=== PATIENT | female | born 1970 | race Caucasian/White ===

== ENCOUNTER 2016-09-09 06:44 | Emergency (ER) | payer OTHER ==
--- NOTE | 2016-09-09 08:54 | DIAGNOSTIC IMAGING REPORT ---
PROCEDURE: CT ABDOMEN/PELVIS W/O CONTRAST INDICATION: Left flank pain, initial encounter TECHNIQUE: Noncontrast axial images were obtained of the entire abdomen and pelvis with sagittal and coronal reformations. COMPARISON: None. FINDINGS: ABDOMEN: Punctate nonobstructing calculus in each kidney. Normal ureters. No hydronephrosis. Right middle lobe scarring. Heart size is normal. Liver, gallbladder, pancreas, spleen, adrenal glands and the aorta are normal. Stool throughout the large bowel. PELVIS: Normal appendix. Normal bladder. No pelvic mass, free fluid or inflammatory changes. Mild degenerative changes of the spine. IMPRESSION: 1. Nonobstructing bilateral renal calculi 2. Obstipation 3. Results discussed with Dr. Gonzalez All CT scans at this facility use dose modulation, iterative reconstruction, and/or weight-based dosing when appropriate to reduce radiation dose to as low as reasonably achievable.
--- NOTE | 2016-09-09 09:40 | ED ORDER SUMMARY ---
..... Patient: FRANCESCO WRIGHT OrderSheet [facility] VisitID: [id number] [place] [address] 46y, F Registration Date/Time: 09/09/2016 ORDER SHEET Weight: 53.0 kg (stated) Allergies: Sulfa Antibiotics GENERAL ORDERS: CBC w Diff Urgent (06:59 09/09/2016 Tyron JOHNSON) (Ack 7:01 CHagerty ER Student) (7:48 LWhalen R.N.) CMP Urgent (06:59 09/09/2016 Tyron JOHNSON) (Ack 7:01 CHagerty ER Student) (7:48 LWhalen R.N.) UA-Culture if indicated Urgent (06:59 09/09/2016 Tyron JOHNSON) (Ack 7:01 CHagerty ER Student) (7:48 LWhalen R.N.) Amylase Urgent (06:59 09/09/2016 Tyron JOHNSON) (Ack 7:01 CHagerty ER Student) (7:48 LWhalen R.N.) Lipase Urgent (06:59 09/09/2016 Tyron JOHNSON) (Ack 7:01 CHagerty ER Student) (7:48 LWhalen R.N.) Urine Urgent (06:59 09/09/2016 Tyron JOHNSON) (Ack 7:01 CHagerty ER Student) (7:48 LWhalen R.N.) CT Abd/Pel wo Cont Urgent (07:56 09/09/2016 Tyron JOHNSON) (Ack 8:04 LNations ER Tech1) (9:53 Prakash R.N.) MEDICATION ORDERS: IV FLUIDS: IV NS : initial bolus 1000 mL (1000 mL/hr), then 200 mL/hr for 4h (NOW); Urgent (06:58 09/09/2016 Tyron JOHNSON) (7:48 LWhalen R.N.) Toradol IV 30 mg (NOW) (07:59 09/09/2016 Tyron JOHNSON) (8:11 LWhalen R.N.) ORDER SHEET NOTES: [Electronically signed by Marquise Parr R.N. (10:22 09/09/2016)] [Electronically signed by Robert Gonzalez MD (14:02 09/13/2016)] [Electronically locked/signed by Marquise Parr R.N. (10:22 09/09/2016)]
--- NOTE | 2016-09-09 09:40 | ED CLINICAL REPORT ---
Clinical Report - Physicians/Mid Levels [facility] [address] [place] [address] 09/09/2016 6:47 Patient: FRANCESCO WRIGHT Time Seen: 06:59. Arrived- By private vehicle. Historian- patient. HISTORY OF PRESENT ILLNESS Chief Complaint: LEFT FLANK PAIN. This started today at about 3 AM and still present. It was abrupt in onset and has been constant. The symptoms are described as severe. The patient has had severe left-sided flank pain. She has had irregular periods. No pain with urination, urinary frequency, urgency of urination or hematuria. Last normal menstrual period was 2 weeks ago. REVIEW OF SYSTEMS The patient has had chills. No fever, sweats, calf pain, chest pain or cough. No difficulty breathing, pedal edema, palpitations, black stools or bloody stools. No constipation, diarrhea, nausea or vomiting. All systems otherwise negative, except as recorded above. PAST HISTORY ( PCP - [facility]). Problems: Split uterus. Nephrolithiasis. Additional Surgeries: Ear. Medications: Black Cohosh Oral, at bedtime. Muscle Relaxant, at bedtime, for TMJ. Allergies: Sulfa Antibiotics. SOCIAL HISTORY Current every day heavy tobacco smoker (cigarette)- less than 1 pack per day. History of occasional drug use: marijuana. No alcohol use. FAMILY HISTORY Cancer in grandparent; seizure disorder in first-degree relative (mother). ADDITIONAL NOTES The nursing notes have been reviewed. PHYSICAL EXAM Vital Signs: 09/09/2016 06:50 BP: 153/90. HR: 77. RR: 16. O2 saturation: 100%. Temp: 98.4 F. Webster-Nickerson pain scale: 6/10. Have been reviewed. Appearance: Alert. ENT: Pharynx normal. Neck: Neck supple. CVS: Heart sounds normal. Respiratory: No respiratory distress. Breath sounds normal. Abdomen: Soft and nontender. Bowel sounds normal. No organomegaly. No mass. Back: Normal external inspection. No CVA tenderness. Skin: Skin warm and dry. Normal skin color. Normal skin turgor. Extremities: Extremities nontender. No lower extremity edema. LABS, X-RAYS, AND EKG Abdominal CT: IMPRESSION: 1. Nonobstructing bilateral renal calculi 2. Obstipation. The study was interpreted by the radiologist and contemporaneously by me. Laboratory Tests: UA-Culture if indicated: (GLADIS: 09/09/2016 07:03) ( [facility] 09/09/2016 07:51) Final results Test Result Flag Units (Reference) URINE COLOR YELLOW URINE APPEARANCE CLEAR URINE GLUCOSE NEGATIVE (NEGATIVE) URINE BILIRUBIN NEGATIVE (NEGATIVE) URINE KETONE TRACE (NEGATIVE) URINE SPECIFIC GRAVITY 1.020 (1.010-1.030) URINE PH 6.0 (5.0-8.0) URINE PROTEIN NEGATIVE (NEGATIVE) URINE UROBILINOGEN 0.2 EU/dL (0.2-1.0) URINE NITRITE NEGATIVE (NEGATIVE) URINE BLOOD 2+ (NEGATIVE) URINE LEUK ESTERASE NEGATIVE (NEGATIVE) URINE RBC 5-10 rbc/hpf (0-1) URINE WBC 3-5 wbc/hpf (0-1) URINE EPITHELIAL CELLS 3-5 EPI/hpf (0-5) URINE BACTERIA FEW (1+) (NONE SEEN) URINE COMMENT CULT NOT INDICATED URINE CULTURES ARE SET-UP BASED ON THE FOLLOWING CRITERIA:POSITIVE NITRITEPOSITIVE LEUKOCYTE ESTERASEGREATER THAN 10 WHITE BLOOD CELLSMODERATE (2+) OR GREATER BACTERIA Urine: (GLADIS: 09/09/2016 07:03) ( [facility] [place] 09/09/2016 07:31) Final results Test Result Flag Units (Reference) URINE NEGATIVE CBC w Diff: (GLADIS: 09/09/2016 07:05) ( [facility] [place] 09/09/2016 07:41) Final results Test Result Flag Units (Reference) WHITE BLOOD COUNT 13.7 H K/uL (4.5-11.5) RED BLOOD COUNT 4.53 M/uL (4.00-5.20) HEMOGLOBIN 14.0 gm/dL (12.0-16.0) HEMATOCRIT 43.3 % (36.0-46.0) MEAN CELL VOLUME 96 fL (80-100) MEAN CORPUSCULAR HGB 31 pg (26-34) MEAN CORPUSCULAR HGB CONC 32 g/dL (31-37) RED CELL DISTRIBUTION WIDTH 14.3 % (11.6-14.8) PLATELET COUNT 275 K/uL (150-400) NEUTROPHIL % 81.1 H % (50-75) LYMPH % 12.9 L % (25-40) MONO % 3.4 % (3-14) EOSINOPHIL % 2.3 % (0-4) BASOPHIL % 0.3 % (0-2) CMP: (GLADIS: 09/09/2016 07:05) ( MsgRcvd 09/09/2016 07:44) Final results Test Result Flag Units (Reference) GLUCOSE 92 mg/dL (70-110) BUN 10 mg/dL (7-18) CREATININE 0.6 mg/dL (0.6-1.3) Estimated GFR >60 mL/min Estimated GFR- >60 mL/min Note: Persistent reduction over 3 months in eGFR<60 mL/min/1.73 m2 defines CKD. Patients with eGFR values>=60 mL/min/1.73 m2 may also have CKD if evidence ofpersistent proteinuria. Additional information may be foundat www.kidney.org. SODIUM 142 mmol/L (136-145) POTASSIUM 3.7 mmol/L (3.5-5.1) CHLORIDE 106 mmol/L (98-107) CARBON DIOXIDE 28 mmol/L (21-32) CALCIUM 8.7 mg/dL (8.5-10.1) TOTAL PROTEIN 7.6 g/dL (6.4-8.2) ALBUMIN 3.6 g/dL (3.3-5.0) BILIRUBIN, TOTAL 0.5 mg/dL (0.0-1.0) ALKALINE PHOSPHATASE 82 U/L (46-116) AST (SGOT) 13 L U/L (15-37) ALT (SGPT) 18 U/L (12-78) LIPASE 116 U/L (73-393) AMYLASE 47 U/L (25-115) . PROGRESS AND PROCEDURES Patient/family counseled. CLINICAL IMPRESSION Constipation Microscopic hematuria Acute urinary tract infection with cystitis. Possible left renal colic with urinary tract infection and hematuria. INSTRUCTIONS No driving or operating machinery while taking medication. Drink plenty of fluids. Warnings: Further evaluation is necessary. GENERAL WARNINGS: Return or contact your physician immediately if your condition worsens or changes unexpectedly, if not improving as expected, or if other problems arise. Prescription Medications: Hydrocodone/APAP 5mg/325mg: take 1 to 2 orally every 6 hours as needed for pain. Dispense fifteen (15). No refills. Toradol 10 mg tablets: Take 1 tablet orally every 6 hours as needed. Dispense fifteen (15). No refills. Substitution is permissible. Zofran 4 mg: Take 1 orally every six hours as needed for nausea/vomiting. Dispense ten (10). No refills. Substitution is permissible. Macrobid 100 mg: Take 1 capsule orally every 12 hours for 7 days. No refills. Substitution is permissible. OTC Medications: Colace capsules (available over the counter): take according to label instructions. Follow-up: Follow up with your doctor tomorrow. Call for an appointment. Follow up with a urologist- as recommended by your primary care physician. Understanding of the discharge instructions verbalized by patient. (Electronically signed by Robert Gonzalez MD 09/13/2016 14:02)
--- NOTE | 2016-09-09 09:40 | ED NURSING NOTES ---
Clinical Report - Nurses [facility] [address] [place] [address] 09/09/2016 6:47 Patient: FRANCESCO WRIGHT TRIAGE Triage time 06:50. Acuity: LEVEL 3. Chief Complaint: (left side pain). Alert. --07:00 Yeni Dominguez R.N. 06:50 09/09/16. BP: 153/90. HR: 77. RR: 16. O2 saturation: 100%. Temp: 98.4 F (oral). Webster-Nickerson pain scale: 01/23. --07:00 Yeni Dominguez R.N. Weight: 53 kg stated. Height/Length: 64 inches Per Patient. BMI: 20.1. --06:59 Yeni Dominguez R.N. Medications Muscle Relaxant, at bedtime, for TMJ. --06:54 Yeni Dominguez R.N. Black Cohosh Oral, at bedtime. --06:54 Yeni Dominguez R.N. Allergies Sulfa Antibiotics. --06:55 Yeni Dominguez R.N. History Arrived by private vehicle. Historian: patient. Accompanied by family. Primary physician ([facility]). This started today. This is a new problem and onset was abrupt. (at about 0300). 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 PAST MEDICAL HX: Immunizations: up-to-date. Last normal menstrual period was 2 weeks ago. Sexual partner has had a vasectomy. SOCIAL HX: Heavy tobacco smoker (cigarette)- 1 pack per day. History of occasional drug use: marijuana. No alcohol use. NUTRITIONAL RISK ASSESSMENT: The nutritional risk assessment revealed no deficiencies. FUNCTIONAL ASSESSMENT: Functional assessment: no impairments noted. --07:00 Yeni Dmoinguez R.N. PROBLEMS: Split uterus. Nephrolithiasis. --06:56 Yeni Dominguez R.N. ADDITIONAL SURGERIES: Ear. --06:56 Yeni Dominguez R.N. Interventions ID band on patient. To treatment room. --07:00 Yeni Dominguez R.N. PHYSICAL ASSESSMENT Ambulatory to room. Patient gowned. GENERAL / NEURO / PSYCH: Alert. Oriented X 4. Appears in pain. HEENT: Mucous membranes are pink. RESPIRATORY: Respirations not labored. CVS: Capillary refill less than 2 seconds. SKIN: Skin is warm and dry. --07:00 Yeni Dominguez R.N. NURSING PROGRESS NOTES Head of bed elevated. Two patient identifiers checked. Call light placed in reach. Side rails up x 1. Bed placed in lowest position. Brakes of bed on. --07:00 Yeni Dominguez R.N. Patient ready for evaluation- chart flagged. --07:00 Yeni Dominguez R.N. Patient ID band checked for patient name and birthdate: patient confirmed. Instructions provided to collect clean catch urine and patient verbalized understanding. Clean catch urine collected with return of yellow-colored clear urine; sample sent to lab. Specimen labeled in the presence of the patient. --07:00 Yeni Dominguez R.N. 07:00 09/09/2016 Site #1 started via IV in the left antecubital space with an 20g angiocath, with aseptic technique and good blood return; one attempt. Blood drawn: rainbow set. Labeled in the presence of the patient and sent to the lab. Saline lock flushed with 10 mL saline. --07:03 Yeni Dominguez R.N. IV started by VANITA Koenig. --07:03 Yeni Dominguez R.N. 07:48 09/09/2016 Started bag #1 1000 mL IV Fluids IV NS (Saline); at 1000 mL/hr over 1 hour(s) via site #1 via IV pump. Allergies verified and confirmed 5 rights. IV patency established. IV site checked: no pain, redness, or swelling. IV flushed thoroughly pre- and post-medication administration. --07:48 Jose M Araujo R.N. 07:48 09/09/16. BP: 120/83. HR: 67. RR: 18. O2 saturation: 96%. Temp: 98.2 F. Pain level now 7/10. --07:48 Jose M Araujo R.N. 08:11 09/09/2016 Toradol IVP 30 mg given over 2 minute(s) via site #1. Allergies verified and confirmed 5 rights. IV patency established. IV site checked: no pain, redness, or swelling. IV flushed thoroughly pre- and post-medication administration. IVP given by RN. --08:11 Jose M Araujo R.N. 09:55 09/09/2016 IV Fluids IV NS Discontinued: bag #1 infused upon discharge. Total amount infused: 1 Liter mL. IV patency established. IV site checked: no pain, redness, or swelling. IV flushed thoroughly. --10:20 Marquise Parr R.N. 10:00 09/09/2016 Site #1 removed upon discharge. Catheter intact. --10:20 Marquise Parr R.N. DISPOSITION / DISCHARGE 10:02 09/09/16. Condition at departure: improved. The goals identified in the patient's plan of care were met. No learning barriers present. Discharge instructions provided and reviewed with the patient. Reviewed warnings. Reviewed medication(s). Treatments reviewed. Patient verbalized understanding. Written instructions provided in [place]. The patient was discharged by the physician. She was discharged home and accompanied by family. She left the Emergency Department ambulatory and via private vehicle. Family member driving. FALL RISK ASSESSMENT: Fall risk assessment completed. No fall risk identified. --10:02 Marquise Parr R.N. 10:00 09/09/16. BP: 126/82. HR: 80. RR: 12. O2 saturation: 100% on room air. Temp: 98.2 F (oral). --10:02 Marquise Parr R.N. 10:02 09/09/16. Departure time: 10:02. --10:02 Marquise Parr R.N. Locked/Released at 09/09/2016 10:23 by Marquise Parr R.N.
--- NOTE | 2016-09-09 09:40 | ED NURSING NOTES ---
Clinical Report - Nurses [facility] [address] [place] [address] 09/09/2016 6:47 Patient: FRANCESCO WRIGHT TRIAGE Triage time 06:50. Acuity: LEVEL 3. Chief Complaint: (left side pain). Alert. --07:00 Yeni Dominguez R.N. 06:50 09/09/16. BP: 153/90. HR: 77. RR: 16. O2 saturation: 100%. Temp: 98.4 F (oral). Webster-Nickerson pain scale: 01/23. --07:00 Yeni Dominguez R.N. Weight: 53 kg stated. Height/Length: 64 inches Per Patient. BMI: 20.1. --06:59 Yeni Dominguez R.N. Medications Muscle Relaxant, at bedtime, for TMJ. --06:54 Yeni Dominguez R.N. Black Cohosh Oral, at bedtime. --06:54 Yeni Dominguez R.N. Allergies Sulfa Antibiotics. --06:55 Yeni Dominguez R.N. History Arrived by private vehicle. Historian: patient. Accompanied by family. Primary physician ([facility]). This started today. This is a new problem and onset was abrupt. (at about 0300). 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 PAST MEDICAL HX: Immunizations: up-to-date. Last normal menstrual period was 2 weeks ago. Sexual partner has had a vasectomy. SOCIAL HX: Heavy tobacco smoker (cigarette)- 1 pack per day. History of occasional drug use: marijuana. No alcohol use. NUTRITIONAL RISK ASSESSMENT: The nutritional risk assessment revealed no deficiencies. FUNCTIONAL ASSESSMENT: Functional assessment: no impairments noted. --07:00 Yeni Dominguez R.N. PROBLEMS: Split uterus. Nephrolithiasis. --06:56 Yeni Dominguez R.N. ADDITIONAL SURGERIES: Ear. --06:56 Yeni Dominguez R.N. Interventions ID band on patient. To treatment room. --07:00 Yeni Dominguez R.N. PHYSICAL ASSESSMENT Ambulatory to room. Patient gowned. GENERAL / NEURO / PSYCH: Alert. Oriented X 4. Appears in pain. HEENT: Mucous membranes are pink. RESPIRATORY: Respirations not labored. CVS: Capillary refill less than 2 seconds. SKIN: Skin is warm and dry. --07:00 Yeni Dominguez R.N. NURSING PROGRESS NOTES Head of bed elevated. Two patient identifiers checked. Call light placed in reach. Side rails up x 1. Bed placed in lowest position. Brakes of bed on. --07:00 Yeni Dominguez R.N. Patient ready for evaluation- chart flagged. --07:00 Yeni Dominguez R.N. Patient ID band checked for patient name and birthdate: patient confirmed. Instructions provided to collect clean catch urine and patient verbalized understanding. Clean catch urine collected with return of yellow-colored clear urine; sample sent to lab. Specimen labeled in the presence of the patient. --07:00 Yeni Dominguez R.N. 07:00 09/09/2016 Site #1 started via IV in the left antecubital space with an 20g angiocath, with aseptic technique and good blood return; one attempt. Blood drawn: rainbow set. Labeled in the presence of the patient and sent to the lab. Saline lock flushed with 10 mL saline. --07:03 Yeni Dominguez R.N. IV started by VANITA Koenig. --07:03 Yeni Dominguez R.N. 07:48 09/09/2016 Started bag #1 1000 mL IV Fluids IV NS (Saline); at 1000 mL/hr over 1 hour(s) via site #1 via IV pump. Allergies verified and confirmed 5 rights. IV patency established. IV site checked: no pain, redness, or swelling. IV flushed thoroughly pre- and post-medication administration. --07:48 Jose M Araujo R.N. 07:48 09/09/16. BP: 120/83. HR: 67. RR: 18. O2 saturation: 96%. Temp: 98.2 F. Pain level now 7/10. --07:48 Jose M Araujo R.N. 08:11 09/09/2016 Toradol IVP 30 mg given over 2 minute(s) via site #1. Allergies verified and confirmed 5 rights. IV patency established. IV site checked: no pain, redness, or swelling. IV flushed thoroughly pre- and post-medication administration. IVP given by RN. --08:11 Jose M Araujo R.N. 09:55 09/09/2016 IV Fluids IV NS Discontinued: bag #1 infused upon discharge. Total amount infused: 1 Liter mL. IV patency established. IV site checked: no pain, redness, or swelling. IV flushed thoroughly. --10:20 Marquise Parr R.N. 10:00 09/09/2016 Site #1 removed upon discharge. Catheter intact. --10:20 Marquise Parr R.N. DISPOSITION / DISCHARGE 10:02 09/09/16. Condition at departure: improved. The goals identified in the patient's plan of care were met. No learning barriers present. Discharge instructions provided and reviewed with the patient. Reviewed warnings. Reviewed medication(s). Treatments reviewed. Patient verbalized understanding. Written instructions provided in [place]. The patient was discharged by the physician. She was discharged home and accompanied by family. She left the Emergency Department ambulatory and via private vehicle. Family member driving. FALL RISK ASSESSMENT: Fall risk assessment completed. No fall risk identified. --10:02 Marquise Parr R.N. 10:00 09/09/16. BP: 126/82. HR: 80. RR: 12. O2 saturation: 100% on room air. Temp: 98.2 F (oral). --10:02 Marquise Parr R.N. 10:02 09/09/16. Departure time: 10:02. --10:02 Marquise Parr R.N. Locked/Released at 09/09/2016 10:23 by Marquise Parr R.N.
--- NOTE | 2016-09-09 09:40 | ED ORDER SUMMARY ---
..... Patient: FRANCESCO WRIGHT OrderSheet [facility] VisitID: [id number] [place] [address] 46y, F Registration Date/Time: 09/09/2016 ORDER SHEET Weight: 53.0 kg (stated) Allergies: Sulfa Antibiotics GENERAL ORDERS: CBC w Diff Urgent (06:59 09/09/2016 Tyron JOHNSON) (Ack 7:01 CHagerty ER Signal Person) (7:48 LWhalen R.N.) CMP Urgent (06:59 09/09/2016 Tyron JOHNSON) (Ack 7:01 CHagerty ER Signal Person) (7:48 LWhalen R.N.) UA-Culture if indicated Urgent (06:59 09/09/2016 Tyron JOHNSON) (Ack 7:01 CHagerty ER Signal Person) (7:48 LWhalen R.N.) Amylase Urgent (06:59 09/09/2016 Tyron JOHNSON) (Ack 7:01 CHagerty ER Signal Person) (7:48 LWhalen R.N.) Lipase Urgent (06:59 09/09/2016 Tyron JOHNSON) (Ack 7:01 CHagerty ER Signal Person) (7:48 LWhalen R.N.) Urine Urgent (06:59 09/09/2016 Tyron JOHNSON) (Ack 7:01 CHagerty ER Signal Person) (7:48 LWhalen R.N.) CT Abd/Pel wo Cont Urgent (07:56 09/09/2016 Tyron JOHNSON) (Ack 8:04 LNations ER Tech1) (9:53 Prakash R.N.) MEDICATION ORDERS: IV FLUIDS: IV NS : initial bolus 1000 mL (1000 mL/hr), then 200 mL/hr for 4h (NOW); Urgent (06:58 09/09/2016 Tyron JOHNSON) (7:48 LWhalen R.N.) Toradol IV 30 mg (NOW) (07:59 09/09/2016 Tyron JOHNSON) (8:11 LWhalen R.N.) ORDER SHEET NOTES: [Electronically signed by Marquise Parr R.N. (10:22 09/09/2016)] [Electronically signed by Robert Gonzalez MD (14:02 09/13/2016)] [Electronically locked/signed by Marquise Parr R.N. (10:22 09/09/2016)]
--- NOTE | 2016-09-13 14:02 | ED MED RECONCILIATION SUMMARY ---
Patient: FRANCESCO WRIGHT Medication Reconciliation Report [facility] VisitID: [id number] [place] [place] [address] 46y, F Registration Date/Time: 09/09/2016 Weight: 53.0 kg Height/Length: 64 in. BMI: 20.1 ALLERGIES: Sulfa Antibiotics The patient's Home Medications are listed below: THE FOLLOWING MEDICATIONS NEED TO BE RECONCILED: Black Cohosh Oral, at bedtime Muscle Relaxant, at bedtime, for TMJ The source(s) of the original Home Medication information: Not obtained. The following Medications were given to the patient in the Emergency Department: IV NS IV Fluids bolus 0, then 1000 mL/hr, administered: 09/09/2016 7:48:00 AM Toradol [IVP] IVP 30 mg, administered: 09/09/2016 8:11:00 AM The following Medications were prescribed to the patient: Colace capsules (available over the counter): take according to label instructions. -- Robert Gonzalez MD Hydrocodone/APAP 5mg/325mg: take 1 to 2 orally every 6 hours as needed for pain. Dispense fifteen (15). No refills. -- Robert Gonzalez MD Toradol 10 mg tablets: Take 1 tablet orally every 6 hours as needed. Dispense fifteen (15). No refills. Substitution is permissible. -- Robert Gonzalez MD Zofran 4 mg: Take 1 orally every six hours as needed for nausea/vomiting. Dispense ten (10). No refills. Substitution is permissible. -- Robert Gonzalez MD Macrobid 100 mg: Take 1 capsule orally every 12 hours for 7 days. No refills. Substitution is permissible. -- Robert Gonzalez MD
--- NOTE | 2016-09-13 14:02 | ED DISCHARGE INSTRUCTIONS ---
Patient: FRANCESCO WRIGHT General Instructions [facility] VisitID: [id number] [place] [address] 46y, F Registration Date/Time: 09/09/2016 Constipation Microscopic hematuria Acute urinary tract infection with cystitis. INSTRUCTIONS No driving or operating machinery while taking medication. Drink plenty of fluids. Warnings: Further evaluation is necessary. GENERAL WARNINGS: Return or contact your physician immediately if your condition worsens or changes unexpectedly, if not improving as expected, or if other problems arise. Prescription Medications: Hydrocodone/APAP 5mg/325mg: take 1 to 2 orally every 6 hours as needed for pain. Dispense fifteen (15). No refills. Toradol 10 mg tablets: Take 1 tablet orally every 6 hours as needed. Dispense fifteen (15). No refills. Substitution is permissible. Zofran 4 mg: Take 1 orally every six hours as needed for nausea/vomiting. Dispense ten (10). No refills. Substitution is permissible. Macrobid 100 mg: Take 1 capsule orally every 12 hours for 7 days. No refills. Substitution is permissible. OTC Medications: Colace capsules (available over the counter): take according to label instructions. Follow-up: Follow up with your doctor tomorrow. Call for an appointment. Follow up with a urologist- as recommended by your primary care physician. Understanding of the discharge instructions verbalized by patient. ADDITIONAL INFORMATION Constipation (Adult) Constipation is bowel movements that are less frequent than usual. Stools often become very hard and difficult to pass. This may lead to abdominal pain and bloating. It may also cause painful bowel movements. Constipation may be due to a diet thats low in fiber. Some medications, especially pain medications, can also cause it. Constipation may be treated with enemas, suppositories, laxatives or stool softeners. Your doctor will advise you which will work best for you. Follow the advice below to help avoid this problem in the future. Home Care Medication: Take any medicines as directed. Some laxatives are safe only for occasional use. Others can be taken on a regular basis. Talk to your doctor or pharmacist if you have questions. General Care: Prescription pain medications can cause constipation. If you are prescribed pain medications, ask the doctor whether you should also take a stool softener. A diet high in fiber with plenty of fluids helps to maintain regular, soft bowel movements. The following foods are good sources of dietary fiber: Cereals and breads: Whole grain cereal with bran, oatmeal, rolled oats, whole grain breads Fruits: All fruits (fresh and dried), raisins, prunes, apricots, berries, figs Vegetables: Any fresh vegetables, especially peas, broccoli, brussels sprouts, winter squash, green beans, cauliflower, hartley beans, carrots Other: Popcorn, brown rice Drink plenty of water when you increase the amount of fiber you eat. Follow Up with your doctor or return to this facility if symptoms do not improve in the next few days. You may require further tests or a referral to a specialist. Get Prompt Medical Attention if any of the following occur: Fever over 100.4F (38C) Failure to resume normal bowel movements Increasing abdominal or back pain Nausea or vomiting Abdominal swelling Blood in the stool Weakness, dizziness or fainting Unexpected vaginal bleeding Kidney Stone, Passed A kidney stone begins as tiny crystals that form inside the kidney where urine is made. Most kidney stones enlarge to about 1/8" to 1/4" in size before leaving the kidney and moving toward the bladder.While the stone remains in the kidney, it causes no symptoms. The sharp cramping pain and nausea/vomiting that you hadwas due to the stone moving through the ureter (the narrow tube joining the kidney to the bladder).Once the stone reaches your bladder, the pain stops. Home Care: Drink plenty of fluids. This increases urine flow and reduces the chance that a new stone will form. Healthy adults (no heart/liver/kidney disease) who have had a kidney stone should drink 2-3 quarts (8-12 eight-ounce glasses) of fluids per day. Most of this should be water. The goal is to produce 1.5 to 2 quarts of almost colorless urine per 24 hours. Unless another NSAID (non-steroidal anti-inflammatory drug) was prescribed, you may take ibuprofen (Motrin, Advil) or naproxen (Aleve) in addition to any narcotic pain medicine prescribed by your doctor for recurrent pain. [NOTE: If you have chronic liver or kidney disease or ever had a stomach ulcer or GI bleeding, talk with your doctor before using these medicines.] Collecting the stone: If you were given a strainer, urinate into a jar then pour the urine through the strainer and into the toilet. Continue this for 24-hours after your pain stops. Save any stone that you find in the strainer and bring it to your doctor for analysis. If you do not collect a stone, a 24 hour urine specimen can be obtained at a later time by your doctor, to determine the cause of your stone. Prevention: Each year, there is a 5-10% chance that a new stone will form (50% chance over the next 10 years).The risk is highest if you have a family history of kidney stones or have certain chronic illnesses such as diabetes.However, there are lifestyle and dietary changes that you can follow to reduce the risk of a recurrence. Most kidney stones are made of calcium. The following is advice for preventing a recurrence of calcium stones.If you dont know the type of stone you have, follow this advice, until the cause of your stone is determined. Things That Help: The most important thing you can do is to drink plenty of fluids each day, as described above (#1). Certain foods such as wheat, rice, rye, barley and beans contain phytate, a compound may lower the risk of recurrence of any type of stone. Increase the amounts of fruits and vegetables (especially those high in potassium). Things To Limit Or Avoid: Calcium supplements may increase your risk of calcium stones. If you are taking these, talk to your doctor about the risks and benefits of continuing this treatment.[Note: There is no need to limit the amount of calcium in the foods you eat (such as milk and dairy products)]. Limit salt intake to 2-3 grams (1 to 1.5 teaspoons) per day. Use limited amounts when cooking, and dont add salt at the table. Limit spinach, rhubarb, peanuts, cashews and almonds, grapefruit and grapefruit juice. Reducing the amount of animal meat in your diet may lower your risk. Women should avoid excess sugar (sucrose) and fructose (sweetener in many soft drinks) in their diet. If you take vitamin C as a supplement, do not take more than 1,000 mg per day. Follow Up with your doctor or as advised by our staff. Even if you don t collect the kidney stone, it is possible to analyze a 24 hour urine collection for the cause of this stone. Follow up with your doctor for this. [NOTE: If you had an x-ray or CT scan, it will be reviewed by a specialist. You will be notified of any new findings that may affect your care.] Get Prompt Medical Attention if any of the following occur: Severe pain that returns and not relieved by pain medicines Repeated vomiting or unable to keep down fluids Weakness, dizziness or fainting Fever of 100.4F (38C) or higher, or as directed by your healthcare provider Blood clotsin urine Unable to pass urine for 8 hours or increasing bladder pressure Blood In The Urine Blood in the urine ("hematuria") has many possible causes. If it occurs after an injury (such as a car accident or fall), it is most often a sign of bruising to the kidney or bladder. Common medical causes of blood in the urine include urinary tract infection, kidney stone, inflammation, tumors, or certain other diseases of the kidney or bladder. Menstruation can cause blood to appear in the urine sample, although it is not coming from the urinary tract. If only a trace amount of blood is present, it will show up on the urine test, even though the urine may be yellow and not pink or red. This may occur with any of the above conditions, as well as heavy exercise or high fever. In this case, your doctor may want to repeat the urine test on another day. This will show if the blood is still present. If so, then other tests can be done to find out the cause. Home Care: If your urine does not appear bloody (pink, brown or red) then you do not need to restrict your activity in any way. If you can see blood in your urine, rest and avoid heavy exertion until your next exam. Do not use aspirin or anti-inflammatory medicine like ibuprofen (Motrin, Advil) or naproxen (Naprosyn, Aleve). These thin the blood and may increase bleeding. Follow Up with your doctor or as advised by our staff. If you were injured and had blood in your urine, you should have a repeat urine test in 1-2 days. Contact your doctor or return to this facility for this test. [NOTE: A radiologist will review any X-rays that were taken. We will notify you of any new findings that may affect your care.] Get Prompt Medical Attention if any of the following occur: Bright red blood or blood clots in the urine (if a new symptom) Weakness, dizziness or fainting New groin, abdominal or back pain Fever of 100.4F (38C) or higher, or as directed by your healthcare provider Repeated vomiting Bleeding from nose, gums or easy bruising High Fiber Diet Fiber is present in all fruits, vegetables, cereals and grains. Fiber passes through the body undigested. A high fiber diet helps food move through the intestinal tract. The added bulk is helpful in preventing constipation. In people with diverticulosis it serves to clean out the pouches along the colon wall while preventing new ones from forming. A high fiber diet also reduces the risk of colon cancer, decreases blood cholesterol and prevents high blood sugar in people with diabetes. The foods listed below are high in fiber and should be included in your diet. If you are not used to high fiber foods, start with 1 or 2 foods from this list. Every 3-4 days add a new one to your diet until you are eating 4 high fiber foods per day. This should give you 20-35 Gm of fiber/day. It is also important to drink a lot of water when you are on this diet (6-8 glasses a day). Water causes the fiber to swell and increases the benefit. Foods High In Dietary Fiber: BREADS: Made with 100% whole wheat flour; tabitha, wheat or rye crackers; tortillas, bran muffins CEREALS: Whole grain cereal with bran (Chex, Raisin Bran, Edmondson Bran), oatmeal, rolled oats, granola, wheat flakes, brown rice NUTS: Any nuts FRUITS: All fresh fruits along with edible skins, (bananas, citrus fruit, mangoes, pears, prunes, raisins, apples, pineapple, apricot, melon, jams and marmalades), fruit juices (especially prune juice) VEGETABLES: All types, preferably raw or lightly cooked: especially, celery, eggplant, potatoes,spinach, broccoli, brussel sprouts, winter squash, carrots, cauliflower, soybeans, lentils, fresh and dried beans of all kinds OTHER: Popcorn, any spices Hydrocodone Bitartrate, Acetaminophen Oral tablet What is this medicine? ACETAMINOPHEN; HYDROCODONE (a set a GAEL bertha fen; jillian droe KOE done) is a pain reliever. It is used to treat mild to moderate pain. How should I use this medicine? Take this medicine by mouth. Swallow it with a full glass of water. Follow the directions on the prescription label. If the medicine upsets your stomach, take the medicine with food or milk. Do not take more than you are told to take. Talk to your ob gyn physician assistant regarding the use of this medicine in children. This medicine is not approved for use in children. What side effects may I notice from receiving this medicine? Side effects that you should report to your doctor or health clinical manager home care as soon as possible: allergic reactions like skin rash, itching or hives, swelling of the face, lips, or tongue breathing problems confusion feeling faint or lightheaded, falls stomach pain yellowing of the eyes or skin Side effects that usually do not require medical attention (report to your doctor or health clinical manager home care if they continue or are bothersome): nausea, vomiting stomach upset What may interact with this medicine? alcohol antihistamines isoniazid medicines for depression, anxiety, or psychotic disturbances medicines for sleep muscle relaxants naltrexone narcotic medicines (opiates) for pain phenobarbital ritonavir tramadol What if I miss a dose? If you miss a dose, take it as soon as you can. If it is almost time for your next dose, take only that dose. Do not take double or extra doses. Where should I keep my medicine? Keep out of the reach of children. This medicine can be abused. Keep your medicine in a safe place to protect it from theft. Do not share this medicine with anyone. Selling or giving away this medicine is dangerous and against the law. Store at room temperature between 15 and 30 degrees C (59 and 86 degrees F). Protect from light. Keep container tightly closed. Throw away any unused medicine after the expiration date. Discard unused medicine and used packaging carefully. Pets and children can be harmed if they find used or lost packages. What should I tell my health care provider before I take this medicine? They need to know if you have any of these conditions: brain tumor Crohn's disease, inflammatory bowel disease, or ulcerative colitis drink more than 3 alcohol-containing drinks per day drug abuse or addiction head injury heart or circulation problems kidney disease or problems going to the bathroom liver disease lung disease, asthma, or breathing problems an unusual or allergic reaction to acetaminophen, hydrocodone, other opioid analgesics, other medicines, foods, dyes, or preservatives or trying to get breast-feeding What should I watch for while using this medicine? Tell your doctor or health clinical manager home care if your pain does not go away, if it gets worse, or if you have new or a different type of pain. You may develop tolerance to the medicine. Tolerance means that you will need a higher dose of the medicine for pain relief. Tolerance is normal and is expected if you take the medicine for a long time. Do not suddenly stop taking your medicine because you may develop a severe reaction. Your body becomes used to the medicine. This does NOT mean you are addicted. Addiction is a behavior related to getting and using a drug for a non-medical reason. If you have pain, you have a medical reason to take pain medicine. Your doctor will tell you how much medicine to take. If your doctor wants you to stop the medicine, the dose will be slowly lowered over time to avoid any side effects. You may get drowsy or dizzy when you first start taking the medicine or change doses. Do not drive, use machinery, or do anything that may be dangerous until you know how the medicine affects you. Stand or sit up slowly. There are different types of narcotic medicines (opiates) for pain. If you take more than one type at the same time, you may have more side effects. Give your health care provider a list of all medicines you use. Your doctor will tell you how much medicine to take. Do not take more medicine than directed. Call emergency for help if you have problems breathing. The medicine will cause constipation. Try to have a bowel movement at least every 2 to 3 days. If you do not have a bowel movement for 3 days, call your doctor or health clinical manager home care. Too much acetaminophen can be very dangerous. Do not take Tylenol (acetaminophen) or medicines that contain acetaminophen with this medicine. Many non-prescription medicines contain acetaminophen. Always read the labels carefully. Ketorolac Tromethamine Oral tablet What is this medicine? KETOROLAC (bradley toe ROLE ak) is a non-steroidal anti-inflammatory drug (NSAID). It is used for a short while to treat moderate to severe pain, including pain after surgery. It should not be used for more than 5 days. How should I use this medicine? Take this medicine by mouth with a full glass of water. Follow the directions on the prescription label. Take your medicine at regular intervals. Do not take your medicine more often than directed. Do not take more than the recommended dose. A special MedGuide will be given to you by the pharmacist with each prescription and refill. Be sure to read this information carefully each time. Talk to your ob gyn physician assistant regarding the use of this medicine in children. While this drug may be prescribed for children as young as 16 years of age for selected conditions, precautions do apply. Patients over 65 years old may have a stronger reaction and need a smaller dose. What side effects may I notice from receiving this medicine? Side effects that you should report to your doctor or health clinical manager home care as soon as possible: allergic reactions like skin rash, itching or hives, swelling of the face, lips, or tongue black or tarry stools breathing problems changes in vision chest pain high blood pressure nausea or vomiting redness, blistering, peeling or loosening of the skin, including inside the mouth severe abdominal pain slurred speech or weakness on one side of the body unexplained weight gain or swelling unusual bleeding or bruising unusually weak or tired yellowing of eyes or skin Side effects that usually do not require medical attention (report to your doctor or health clinical manager home care if they continue or are bothersome): diarrhea dizziness headache heartburn What may interact with this medicine? Do not take this medicine with any of the following medications: aspirin and aspirin-like medicines cidofovir methotrexate NSAIDs, medicines for pain and inflammation, like ibuprofen or naproxen pemetrexed probenecid This medicine may also interact with the following medications: alcohol alendronate alprazolam carbamazepine cyclosporine diuretics flavocoxid fluoxetine ginkgo lithium medicines for high blood pressure like enalapril medicines that affect platelets like pentoxifylline medicines that treat or prevent blood clots like heparin, warfarin muscle relaxants phenytoin steroid medicines like prednisone or cortisone thiothixene What if I miss a dose? If you miss a dose, take it as soon as you can. If it is almost time for your next dose, take only that dose. Do not take double or extra doses. Where should I keep my medicine? Keep out of the reach of children. Store at room temperature between 20 and 25 degrees C (68 and 77 degrees F). Throw away any unused medicine after the expiration date. What should I tell my health care provider before I take this medicine? They need to know if you have any of these conditions: asthma bleeding problems like hemophilia cigarette smoker drink more than 3 alcohol containing drinks a day heart disease or circulation problems such as heart failure or leg edema (fluid retention) high blood pressure kidney disease liver disease stomach bleeding or ulcers an unusual or allergic reaction to ketorolac, aspirin, other NSAIDs, other medicines, foods, dyes, or preservatives or trying to get breast-feeding What should I watch for while using this medicine? Tell your doctor or health clinical manager home care if your pain does not get better. Talk to your doctor before taking another medicine for pain. Do not treat yourself. This medicine does not prevent heart attack or stroke. In fact, this medicine may increase the chance of a heart attack or stroke. The chance may increase with longer use of this medicine and in people who have heart disease. If you take aspirin to prevent heart attack or stroke, talk with your doctor or health clinical manager home care. Do not take medicines such as ibuprofen and naproxen with this medicine. Side effects such as stomach upset, nausea, or ulcers may be more likely to occur. Many medicines available without a prescription should not be taken with this medicine. This medicine can cause ulcers and bleeding in the stomach and intestines at any time during treatment. Do not smoke cigarettes or drink alcohol. These increase irritation to your stomach and can make it more susceptible to damage from this medicine. Ulcers and bleeding can happen without warning symptoms and can cause . You may get drowsy or dizzy. Do not drive, use machinery, or do anything that needs mental alertness until you know how this medicine affects you. Do not stand or sit up quickly, especially if you are an older patient. This reduces the risk of dizzy or fainting spells. This medicine can cause you to bleed more easily. Try to avoid damage to your teeth and gums when you brush or floss your teeth. Ondansetron Oral disintegrating tablet What is this medicine? ONDANSETRON (on NANCY se waqas) is used to treat nausea and vomiting caused by chemotherapy. It is also used to prevent or treat nausea and vomiting after surgery. How should I use this medicine? These tablets are made to dissolve in the mouth. Do not try to push the tablet through the foil backing. With dry hands, peel away the foil backing and gently remove the tablet. Place the tablet in the mouth and allow it to dissolve, then swallow. While you may take these tablets with water, it is not necessary to do so. Talk to your ob gyn physician assistant regarding the use of this medicine in children. Special care may be needed. What side effects may I notice from receiving this medicine? Side effects that you should report to your doctor or health clinical manager home care as soon as possible: allergic reactions like skin rash, itching or hives, swelling of the face, lips, or tongue breathing problems dizziness fast or irregular heartbeat feeling faint or lightheaded, falls fever and chills swelling of the hands and feet tightness in the chest Side effects that usually do not require medical attention (report to your doctor or health clinical manager home care if they continue or are bothersome): constipation or diarrhea headache What may interact with this medicine? Do not take this medicine with any of the following medications: -apomorphine -cisapride -dofetilide -dronedarone -pimozide -thioridazine -ziprasidone This medicine may also interact with the following medications: -carbamazepine -phenytoin -rifampicin -tramadol -other medicines that prolong the QT interval (cause an abnormal heart rhythm) What if I miss a dose? If you miss a dose, take it as soon as you can. If it is almost time for your next dose, take only that dose. Do not take double or extra doses. Where should I keep my medicine? Keep out of the reach of children. Store between 2 and 30 degrees C (36 and 86 degrees F). Throw away any unused medicine after the expiration date. What should I tell my health care provider before I take this medicine? They need to know if you have any of these conditions: heart disease history of irregular heartbeat liver disease low levels of magnesium or potassium in the blood an unusual or allergic reaction to ondansetron, granisetron, other medicines, foods, dyes, or preservatives or trying to get breast-feeding What should I watch for while using this medicine? Check with your doctor or health clinical manager home care as soon as you can if you have any sign of an allergic reaction. Nitrofurantoin, Nitrofurantoin, Macrocrystalline Oral capsule What is this medicine? NITROFURANTOIN (marisel whatley) is an antibiotic. It is used to treat urinary tract infections. How should I use this medicine? Take this medicine by mouth with a glass of water. Follow the directions on the prescription label. Take this medicine with food or milk. Take your doses at regular intervals. Do not take your medicine more often than directed. Do not stop taking except on your doctor's advice. Talk to your ob gyn physician assistant regarding the use of this medicine in children. While this drug may be prescribed for selected conditions, precautions do apply. What side effects may I notice from receiving this medicine? Side effects that you should report to your doctor or health clinical manager home care as soon as possible: allergic reactions like skin rash or hives, swelling of the face, lips, or tongue chest pain cough difficulty breathing dizziness, drowsiness fever or infection joint aches or pains pale or blue-tinted skin redness, blistering, peeling or loosening of the skin, including inside the mouth tingling, burning, pain, or numbness in hands or feet unusual bleeding or bruising unusually weak or tired yellowing of eyes or skin Side effects that usually do not require medical attention (report to your doctor or health clinical manager home care if they continue or are bothersome): dark urine diarrhea headache loss of appetite nausea or vomiting temporary hair loss What may interact with this medicine? antacids containing magnesium trisilicate probenecid quinolone antibiotics like ciprofloxacin, lomefloxacin, norfloxacin and ofloxacin sulfinpyrazone What if I miss a dose? If you miss a dose, take it as soon as you can. If it is almost time for your next dose, take only that dose. Do not take double or extra doses. Where should I keep my medicine? Keep out of the reach of children. Store at room temperature between 15 and 30 degrees C (59 and 86 degrees F). Protect from light. Throw away any unused medicine after the expiration date. What should I tell my health care provider before I take this medicine? They need to know if you have any of these conditions: anemia diabetes [id number] dehydrogenase deficiency kidney disease liver disease lung disease other chronic illness an unusual or allergic reaction to nitrofurantoin, other antibiotics, other medicines, foods, dyes or preservatives or trying to get breast-feeding What should I watch for while using this medicine? Tell your doctor or health clinical manager home care if your symptoms do not improve or if you get new symptoms. Drink several glasses of water a day. If you are taking this medicine for a long time, visit your doctor for regular checks on your progress. If you are diabetic, you may get a false positive result for sugar in your urine with certain brands of urine tests. Check with your doctor. Docusate Sodium Oral tablet What is this medicine? DOCUSATE (doc CUE sayt) is stool softener. It helps prevent constipation and straining or discomfort associated with hard or dry stools. How should I use this medicine? Take this medicine by mouth with a glass of water. Follow the directions on the label. Take your doses at regular intervals. Do not take your medicine more often than directed. Talk to your ob gyn physician assistant regarding the use of this medicine in children. While this medicine may be prescribed for children as young as 2 years for selected conditions, precautions do apply. What side effects may I notice from receiving this medicine? Side effects that you should report to your doctor or health clinical manager home care as soon as possible: allergic reactions like skin rash, itching or hives, swelling of the face, lips, or tongue Side effects that usually do not require medical attention (report to your doctor or health clinical manager home care if they continue or are bothersome): diarrhea stomach cramps throat irritation What may interact with this medicine? mineral oil What if I miss a dose? If you miss a dose, take it as soon as you can. If it is almost time for your next dose, take only that dose. Do not take double or extra doses. Where should I keep my medicine? Keep out of the reach of children. Store at room temperature between 15 and 30 degrees C (59 and 86 degrees F). Throw away any unused medicine after the expiration date. What should I tell my health care provider before I take this medicine? They need to know if you have any of these conditions: nausea or vomiting severe constipation stomach pain sudden change in bowel habit lasting more than 2 weeks an unusual or allergic reaction to docusate, other medicines, foods, dyes, or preservatives or trying to get breast-feeding What should I watch for while using this medicine? Do not use for more than one week without advice from your doctor or health clinical manager home care. If your constipation returns, check with your doctor or health clinical manager home care. Drink plenty of water while taking this medicine. Drinking water helps decrease constipation. Stop using this medicine and contact your doctor or health clinical manager home care if you experience any rectal bleeding or do not have a bowel movement after use. These could be signs of a more serious condition. You have been given the following additional information: Constipation (Adult) Kidney Stone, Passed Hematuria Diet, High Fiber Hydrocodone Bitartrate, Acetaminophen Oral tablet Ketorolac Tromethamine Oral tablet Ondansetron Oral disintegrating tablet Nitrofurantoin, Nitrofurantoin, Macrocrystalline Oral capsule Docusate Sodium Oral tablet No driving or operating machinery while taking medication. (Electronically signed by Robert Gonzalez MD 09/13/2016 14:02)
--- NOTE | 2016-09-13 14:02 | ED MED RECONCILIATION SUMMARY ---
Patient: FRANCESCO WRIGHT Medication Reconciliation Report [facility] VisitID: [id number] [place] [address] 46y, F Registration Date/Time: 09/09/2016 Weight: 53.0 kg Height/Length: 64 in. BMI: 20.1 ALLERGIES: Sulfa Antibiotics The patient's Home Medications are listed below: THE FOLLOWING MEDICATIONS NEED TO BE RECONCILED: Black Cohosh Oral, at bedtime Muscle Relaxant, at bedtime, for TMJ The source(s) of the original Home Medication information: Not obtained. The following Medications were given to the patient in the Emergency Department: IV NS IV Fluids bolus 0, then 1000 mL/hr, administered: 09/09/2016 7:48:00 AM Toradol [IVP] IVP 30 mg, administered: 09/09/2016 8:11:00 AM The following Medications were prescribed to the patient: Colace capsules (available over the counter): take according to label instructions. -- Robert Gonzalez MD Hydrocodone/APAP 5mg/325mg: take 1 to 2 orally every 6 hours as needed for pain. Dispense fifteen (15). No refills. -- Robert Gonzalez MD Toradol 10 mg tablets: Take 1 tablet orally every 6 hours as needed. Dispense fifteen (15). No refills. Substitution is permissible. -- Robert Gonzalez MD Zofran 4 mg: Take 1 orally every six hours as needed for nausea/vomiting. Dispense ten (10). No refills. Substitution is permissible. -- Robert Gonzalez MD Macrobid 100 mg: Take 1 capsule orally every 12 hours for 7 days. No refills. Substitution is permissible. -- Robert Gonzalez MD
--- NOTE | 2016-09-13 14:02 | ED MAR SUMMARY ---
..... Medication Administration Record [facility] [address] [place] [address] Patient: FRANCESCO WRIGHT Visit ID: [id number] 46y, F Weight: 53.0 kg Height/Length: 64 in BMI: 20.1 ALLERGIES: Sulfa Antibiotics Start 07:48 09/09/2016 Jose M Araujo RHomero, Stop 09:55 09/09/2016 Marquise Parr R.N. Medication Administered: IV NS (SALINE), Dose: IV Fluids over 1 hour(s), Rate: 1000 mL/hr, Dispensed: 1000 mL bag, Site: #1 left AC. Medication Ordered: IV NS : initial bolus 1000 mL (1000 mL/hr), then 200 mL/hr for 4h (NOW); Urgent. Given 08:11 09/09/2016 Jose M Araujo R.N. Medication Administered: TORADOL [IVP], Dose: 30 mg IVP over 2 minute(s), Site: #1 left AC. Medication Ordered: Toradol IV 30 mg (NOW).
--- NOTE | 2016-09-13 14:02 | ED MAR SUMMARY ---
..... Medication Administration Record [facility] [address] [place] [address] Patient: FRANCESCO WRIGHT Visit ID: [id number] 46y, F Weight: 53.0 kg Height/Length: 64 in BMI: 20.1 ALLERGIES: Sulfa Antibiotics Start 07:48 09/09/2016 Jose M Araujo RHomero, Stop 09:55 09/09/2016 Marquise Parr R.N. Medication Administered: IV NS (SALINE), Dose: IV Fluids over 1 hour(s), Rate: 1000 mL/hr, Dispensed: 1000 mL bag, Site: #1 left AC. Medication Ordered: IV NS : initial bolus 1000 mL (1000 mL/hr), then 200 mL/hr for 4h (NOW); Urgent. Given 08:11 09/09/2016 Jose M Araujo R.N. Medication Administered: TORADOL [IVP], Dose: 30 mg IVP over 2 minute(s), Site: #1 left AC. Medication Ordered: Toradol IV 30 mg (NOW).
== END 2016-09-09 10:02 | disposition home or self-care (01) ==
LOC: ED SRH 06:44
DX: K59.00 Constipation, unspecified (principal); R31.29 Other microscopic hematuria; N39.0 Urinary tract infection, site not specified; N30.91 Cystitis, unspecified with hematuria; F17.210 Nicotine dependence, cigarettes, uncomplicated
CPT/HCPCS: 90004; 90100; 92235; 92530; 93070; 95059